=== PATIENT | female | born 1995 | race Hispanic/Latino ===

== ENCOUNTER 2024-09-08 15:31 | Inpatient (IN) | payer MEDICAID, OTHER, SELFPAY ==
[2024-09-08] MEDS ORDERED: Labetalol HCl 100 MG/20 ML VIAL SLOW IVP PRN ×2 (16:14→18:03)
[2024-09-08] MEDS: hydrALAZINE 20 MG/ML VIAL SLOW IVP PRN ×2 (16:23→16:45)
[2024-09-08 16:36] LABS: #Basophils 0.03 10x3/uL (0.0-0.2); #Monocytes 0.73 10x3/uL (0.0-1.1); #Neutrophils 4.98 10x3/uL (1.5-8.4); %Basophils 0.4 % (0.0-2.0); %Eosinophils 1.2 % (0.0-6.0); %Lymphocytes 28.7 % (18.0-47.0); %Monocytes 8.9 % (0.0-10.0); %Neutrophils 60.6 % (40.0-75.0); Hematocrit 38.2 % (34.9-44.5); Hemoglobin 12.8 g/dL (12.0-15.5); Mean Corpuscular HGB CONC 33.5 g/dL (32.0-36.0); Mean Corpuscular Volume 83.6 fL (81.6-98.3); Mean Platelet Volume 10.3 fL (7.4-10.4); Platelet Count 273 10x3/uL (150-450); Red Blood Cell (RBC) Count 4.57 10x6/uL (3.90-5.03); White Blood Cell (WBC) Count 8.2 10x3/uL (3.5-10.5)
[2024-09-08] MEDS ORDERED: Acetaminophen 500 MG TAB PO PRN ×2 (16:37→17:47)
[2024-09-08] MEDS ORDERED: Misoprostol 200 MCG TAB PR PRN (16:37)
[2024-09-08] MEDS ORDERED: Lorazepam 2 MG/ML VIAL SLOW IVP PRN (16:37)
[2024-09-08] MEDS ORDERED: Diphenoxylate HCl/Atropine Tablet PO PRN ×2 (16:37)
[2024-09-08] MEDS ORDERED: Promethazine HCl 25 MG/ML VIAL IM PRN (16:37)
[2024-09-08] MEDS ORDERED: Carboprost 250 MCG/ML AMP IM PRN (16:37)
[2024-09-08] MEDS ORDERED: Ondansetron PF 4 MG/2 ML Vial IVP PRN (16:37)
[2024-09-08] MEDS ORDERED: Calcium Gluc 4.6 MEQ/10 ML (100 MG/ML) SLOW IVP PRN (16:37)
[2024-09-08] MEDS ORDERED: Methylergonovine 0.2 MG/ML VIAL IM PRN (16:37)
[2024-09-08] MEDS ORDERED: Tranexamic Acid 1,000 MG/10 ML VIAL IVP PRN (16:37)
[2024-09-08 16:38] VITALS: BMI 35.6
[2024-09-08] MEDS ORDERED: Oxytocin 30 units/NS 500 ML 500 ML IV SCH (16:45)
[2024-09-08] MEDS: Magnesium Sulfate 20 gm/500 ml 20 GM/500 ML BAG ONE (16:48)
[2024-09-08 16:57] LABS: ALT (SGPT) 25 U/L (8-55); AST (SGOT) 24 U/L (5-34); Alkaline Phosphatase 127 U/L (40-110); Anion Gap 14 mmol/L (10-20); BUN (Urea Nitrogen) 10 mg/dL (7.0-18.7); Bilirubin, Total 0.2 mg/dL (0.2-1.2); Calc. Creatinine Clearance 132 mL/min (70-130); Calcium 9.2 mg/dL (7.8-10.44); Carbon Dioxide 20 mmol/L (22-29); Chloride 106 mmol/L (98-107); Estimated GFR 121; Globulin 3.7 g/dL (2.4-3.5); Glucose 84 mg/dL (70-105); Potassium 4.2 mmol/L (3.5-5.1); Protein, Total 6.7 g/dL (6.0-8.3); Sodium 136 mmol/L (136-145)
[2024-09-08 17:15] LABS: HIV (1/2) Antibody/Antigen Non-Reactive (NonReactive); HIV 1/2 INDEX 0.09 S/CO (<1.00)
[2024-09-08 17:17] LABS: Syphilis Antibody Nonreactive (Nonreactive); Syphilis Antibody Index 0.04 S/CO (<1.00 Non-Reactive)
[2024-09-08] MEDS: Betamet Acet/Betamet Na Ph 30 MG/5 ML VIAL IM SCH (17:30)
[2024-09-08] MEDS: Lactated Ringer's 1,000 ML IV SCH (17:37)
[2024-09-08] MEDS ORDERED: diphenhydrAMINE 50 MG/ML VIAL IVP PRN (17:44)
[2024-09-08] MEDS ORDERED: Metoclopramide HCl 10 MG (2 mL) VIAL IVP PRN (17:45)
[2024-09-08] MEDS ORDERED: hydrALAZINE 20 MG/ML VIAL SLOW IVP PRN (18:03)
[2024-09-08 18:16] LABS: HBsAg Index 0.22 S/CO (0-0.99); Hep B Surf Ag - L&D Non-Reactive S/CO (NonReactive)
[2024-09-08] MEDS: Labetalol HCl 100 MG/20 ML VIAL SLOW IVP PRN (18:34)
[2024-09-08 18:46] LABS: Magnesium 1.6 mg/dL (1.6-2.6)
[2024-09-08] MEDS: Labetalol HCl 200 MG TAB PO SCH (20:17)
[2024-09-08 20:25] LABS: Uric Acid 5.7 mg/dL (2.6-6.0)
[2024-09-08 21:26] LABS: Influenza A by NAA Not Detected (NotDetected); Influenza B by NAA Not Detected (NotDetected); SARS-CoV-2 NAA Rapid Test Not Detected (NotDetected)
[2024-09-09] MEDS: Magnesium Sulfate 20 gm/500 ml 20 GM/500 ML BAG IVPB SCH (00:35)
[2024-09-09 01:29] LABS: Bilirubin Neg (Negative); Blood, Urine 250 (Negative); Clarity Slightly Cloudy (Clear); Glucose, Urine (Dipstick) Normal (Negative); Ketone, Urine 50 mg/dL (Negative); Leukocyte Negative (Negative); Nitrite Negative (Negative); Protein, Urine (Dipstick) 30 mg/dl (Neg-Trace); Urobilinogen Normal mg/dL (Less than 2)
[2024-09-09 01:39] LABS: RBC/HPF Greater than 50 HPF (0-3)
[2024-09-09 01:42] LABS: Bacteria/HPF Rare-Few HPF (None Seen); Squamous Epithelial 0-3 HPF (0-3); WBC/HPF 0-3 HPF (0-3)
[2024-09-09 01:44] LABS: CAUTI Indications for Culture Pregnancy
[2024-09-09 01:45] LABS: Urine Culture Reflex Yes Yes
[2024-09-09 04:31] LABS: #Basophils 0.01 10x3/uL (0.0-0.2); #Monocytes 0.18 10x3/uL (0.0-1.1); #Neutrophils 8.13 10x3/uL (1.5-8.4); %Basophils 0.1 % (0.0-2.0); %Lymphocytes 13.3 % (18.0-47.0); %Monocytes 1.9 % (0.0-10.0); %Neutrophils 83.8 % (40.0-75.0); Hematocrit 37.3 % (34.9-44.5); Hemoglobin 12.3 g/dL (12.0-15.5); Mean Corpuscular Hemoglobin 27.8 pg (27.0-33.0); Mean Corpuscular Volume 84.4 fL (81.6-98.3); Mean Platelet Volume 9.5 fL (7.4-10.4); Platelet Count 265 10x3/uL (150-450); RBC Distribution Width 15.5 % (11.5-14.5); Red Blood Cell (RBC) Count 4.42 10x6/uL (3.90-5.03); White Blood Cell (WBC) Count 9.7 10x3/uL (3.5-10.5)
[2024-09-09 04:45] LABS: ALT (SGPT) 24 U/L (8-55); AST (SGOT) 21 U/L (5-34); Albumin 2.7 g/dL (3.5-5.0); Alkaline Phosphatase 129 U/L (40-110); Anion Gap 18 mmol/L (10-20); BUN (Urea Nitrogen) 8 mg/dL (7.0-18.7); Bilirubin, Total 0.2 mg/dL (0.2-1.2); Calc. Creatinine Clearance 149 mL/min (70-130); Calcium 8.4 mg/dL (7.8-10.44); Carbon Dioxide 15 mmol/L (22-29); Chloride 105 mmol/L (98-107); Estimated GFR 124; Globulin 3.8 g/dL (2.4-3.5); Glucose 127 mg/dL (70-105); Potassium 3.9 mmol/L (3.5-5.1); Protein, Total 6.5 g/dL (6.0-8.3); Sodium 134 mmol/L (136-145)
[2024-09-09] MEDS: Betamet Acet/Betamet Na Ph 30 MG/5 ML VIAL IM SCH (08:51)
[2024-09-09] MEDS: Labetalol HCl 100 MG TAB PO SCH (08:54)
[2024-09-09] MEDS ORDERED: Labetalol HCl 200 MG TAB PO SCH (09:00)
[2024-09-09 16:09] LABS: Uric Acid 6.6 mg/dL (2.6-6.0)
[2024-09-09] MEDS ORDERED: Bicitra 30 ML UDCUP PO PRN (17:12)
[2024-09-09] MEDS ORDERED: Famotidine/PF 20 mg/2ml Vial SLOW IVP PRN (17:12)
[2024-09-09] MEDS: CEFAZOLIN 2 GM in Sodium Chloride 0.9% 100 ML IVPB SCH (17:44)
[2024-09-09 18:35] LABS: Analyzer IN Cardio CS NICU; RapidComm Collect By RN
[2024-09-09 18:37] LABS: Analyzer IN Cardio CS NICU; RapidComm Collect By RN; pH (Cord, venous) 7.275 (7.250-7.350)
[2024-09-09] MEDS ORDERED: Naloxone HCl 0.4 mg/ml Vial IVP PRN (19:20)
[2024-09-09] MEDS ORDERED: Meperidine HCl/PF 25 MG (1 mL) VIAL SLOW IVP PRN (19:20)
[2024-09-09] MEDS ORDERED: fentaNYL 50 mcg/mL 1 mL Vial SLOW IVP PRN (19:20)
[2024-09-09] MEDS ORDERED: Naloxone HCl 0.4 mg/ml Vial IV PRN (19:20)
[2024-09-09] MEDS ORDERED: Ondansetron PF 4 MG/2 ML Vial IVP PRN ×2 (19:20)
[2024-09-09] MEDS ORDERED: Promethazine HCl 25 MG/ML VIAL IM PRN (19:20)
[2024-09-09] MEDS ORDERED: Ketorolac Tromethamine 30 MG (1 mL) VIAL IVP SCH (19:30)
[2024-09-09] MEDS ORDERED: Communication Order-Pharmacy FS SCH (19:30)
[2024-09-09] MEDS ORDERED: diphenhydrAMINE 25 MG CAP PO PRN (23:33)
[2024-09-10 00:05] LABS: Group B Streptococcus by PCR Not Detected (NotDetected)
[2024-09-10] MEDS: Ketorolac Tromethamine 30 MG (1 mL) VIAL IVP PRN (09:00)
[2024-09-10] MEDS: Moisturizing Cream (Eucerin) 113 GM JAR TOP PRN (10:18)
[2024-09-10] MEDS: diphenhydrAMINE 50 MG/ML VIAL IVP PRN (10:19)
[2024-09-10] MEDS: Naloxone HCl 0.4 mg/ml Vial IVP PRN (10:19)
[2024-09-10] MEDS ORDERED: Oxytocin 30 units/NS 500 ML 500 ML IV SCH (20:01)
[2024-09-10] MEDS ORDERED: Misoprostol 200 MCG TAB PR PRN (20:01)
[2024-09-10] MEDS ORDERED: Calcium Gluc 4.6 MEQ/10 ML (100 MG/ML) SLOW IVP PRN (20:01)
[2024-09-10] MEDS ORDERED: hydrALAZINE 20 MG/ML VIAL SLOW IVP PRN (20:01)
[2024-09-10] MEDS ORDERED: Lorazepam 2 MG/ML VIAL SLOW IVP PRN (20:01)
[2024-09-10] MEDS ORDERED: diphenhydrAMINE 25 MG CAP PO PRN (20:01)
[2024-09-10] MEDS ORDERED: Magnesium Sulfate 20 gm/500 ml 20 GM/500 ML BAG IVPB SCH ×2 (20:01)
[2024-09-10] MEDS ORDERED: Lanolin Ointment 7 GM TUBE TOP PRN (20:01)
[2024-09-10] MEDS ORDERED: Ondansetron PF 4 MG/2 ML Vial IVP PRN (20:01)
[2024-09-10] MEDS: Labetalol HCl 100 MG TAB PO SCH (20:58)
[2024-09-10] MEDS: Docusate 100 MG CAP PO SCH (20:58)
[2024-09-10] MEDS: HYDROcodone/Acetaminophen 5/325 mg Tablet PO PRN (20:59)
[2024-09-10] MEDS: Prenatal Vitamin 1 TAB PO SCH (21:00)
[2024-09-10] MEDS: Simethicone Chewable 80 MG TAB PO PRN (23:09)
[2024-09-10] MEDS: Ibuprofen 800 MG TAB PO SCH (23:11)
[2024-09-11] MEDS: Ferrous Sulfate 325 MG TAB PO SCH (01:43)
[2024-09-11 03:48] LABS: Hemoglobin 10.4 g/dL (12.0-15.5); Mean Corpuscular HGB CONC 33.5 g/dL (32.0-36.0); Mean Corpuscular Hemoglobin 28.6 pg (27.0-33.0); Mean Corpuscular Volume 85.2 fL (81.6-98.3); Mean Platelet Volume 9.5 fL (7.4-10.4); Platelet Count 239 10x3/uL (150-450); RBC Distribution Width 16.1 % (11.5-14.5); Red Blood Cell (RBC) Count 3.64 10x6/uL (3.90-5.03); White Blood Cell (WBC) Count 9.8 10x3/uL (3.5-10.5)
[2024-09-11] MEDS: Boostrix 0.5 ML (Tdap) VIAL (>/=7 yrs of age) IM ONE (07:07)
[2024-09-11] MEDS: Oxytocin 10 UNITS/ML VIAL ONE (07:09)
[2024-09-11] MEDS: Ondansetron PF 4 MG/2 ML Vial ONE (07:09)
[2024-09-11] MEDS: PHENYLEPHRINE-NS 100 MCG/ML 10 ML SYRINGE ONE (07:09)
[2024-09-11] MEDS: Dexamethasone 10 MG/ML VIAL ONE (07:09)
[2024-09-11] MEDS: Acetaminophen 500 MG TAB PO SCH (07:09)
[2024-09-11] MEDS: Betamet Acet/Betamet Na Ph 30 MG/5 ML VIAL ONE (07:09)
[2024-09-11] MEDS: Morphine PF 10 MG/10 ML VIAL ONE (07:09)
[2024-09-11] MEDS: Tranexamic Acid 1,000 MG/10 ML VIAL ONE (07:10)
[2024-09-11] MEDS: Phytonadione Neonatal 1 MG/0.5 ML AMP ONE (07:10)
[2024-09-11] MEDS: Erythromycin Base 0.5% Oint 1 GM TUBE ONE (07:10)
[2024-09-11] MEDS: fentaNYL 50 mcg/mL 1 mL Vial ONE ×2 (07:10)
[2024-09-11] MEDS: ePHEDrine Sulfate 50 MG/10 ML VIAL ONE (07:10)
[2024-09-11] MEDS: Labetalol HCl 200 MG TAB PO SCH (08:36)
[2024-09-11] MEDS: Prenatal Vitamin 1 TAB PO SCH (08:36)
[2024-09-11] MEDS: HYDROcodone/Acetaminophen 5/325 mg Tablet PO PRN (09:38)
[2024-09-12] MEDS: Ibuprofen 800 MG TAB PO SCH (07:49)
[2024-09-12] MEDS ORDERED: Labetalol HCl 200 MG TAB PO SCH (09:00)
[2024-09-12] MEDS: Labetalol HCl 200 MG TAB PO SCH ×2 (09:01→20:33)
[2024-09-12] MEDS: hydrALAZINE 20 MG/ML VIAL ONE (09:02)
[2024-09-12 09:22] LABS: #Basophils 0.02 10x3/uL (0.0-0.2); #Eosinophils 0.04 10x3/uL (0.0-0.5); #Monocytes 0.73 10x3/uL (0.0-1.1); %Basophils 0.2 % (0.0-2.0); %Eosinophils 0.4 % (0.0-6.0); %Lymphocytes 23.7 % (18.0-47.0); %Monocytes 7.1 % (0.0-10.0); Hematocrit 34.9 % (34.9-44.5); Hemoglobin 11.6 g/dL (12.0-15.5); Mean Corpuscular HGB CONC 33.2 g/dL (32.0-36.0); Mean Corpuscular Hemoglobin 28.5 pg (27.0-33.0); Mean Corpuscular Volume 85.7 fL (81.6-98.3); Mean Platelet Volume 9.3 fL (7.4-10.4); Platelet Count 260 10x3/uL (150-450); RBC Distribution Width 15.9 % (11.5-14.5); Red Blood Cell (RBC) Count 4.07 10x6/uL (3.90-5.03); White Blood Cell (WBC) Count 10.3 10x3/uL (3.5-10.5)
[2024-09-12 09:41] LABS: ALT (SGPT) 27 U/L (8-55); AST (SGOT) 32 U/L (5-34); Albumin 2.7 g/dL (3.5-5.0); Alkaline Phosphatase 91 U/L (40-110); Anion Gap 17 mmol/L (10-20); BUN (Urea Nitrogen) 14 mg/dL (7.0-18.7); Bilirubin, Total 0.2 mg/dL (0.2-1.2); Calc. Creatinine Clearance 140 mL/min (70-130); Calcium 8.6 mg/dL (7.8-10.44); Carbon Dioxide 20 mmol/L (22-29); Chloride 106 mmol/L (98-107); Estimated GFR 122; Globulin 3.6 g/dL (2.4-3.5); Glucose 103 mg/dL (70-105); Potassium 4.1 mmol/L (3.5-5.1); Protein, Total 6.3 g/dL (6.0-8.3); Sodium 139 mmol/L (136-145)
[2024-09-12] MEDS ORDERED: hydrALAZINE 20 MG/ML VIAL SLOW IVP PRN (20:09)
[2024-09-12] MEDS: hydrALAZINE 20 MG/ML VIAL SLOW IVP SCH (20:18)
[2024-09-12] MEDS: NIFEdipine XL 30 MG ER.TAB PO SCH (20:32)
[2024-09-13 03:55] LABS: #Basophils 0.01 10x3/uL (0.0-0.2); #Monocytes 0.68 10x3/uL (0.0-1.1); #Neutrophils 7.54 10x3/uL (1.5-8.4); %Basophils 0.1 % (0.0-2.0); %Eosinophils 0.9 % (0.0-6.0); %Lymphocytes 20.7 % (18.0-47.0); %Monocytes 6.4 % (0.0-10.0); %Neutrophils 71.5 % (40.0-75.0); Hematocrit 35.7 % (34.9-44.5); Hemoglobin 11.4 g/dL (12.0-15.5); Mean Corpuscular HGB CONC 31.9 g/dL (32.0-36.0); Mean Corpuscular Hemoglobin 27.7 pg (27.0-33.0); Mean Corpuscular Volume 86.9 fL (81.6-98.3); Mean Platelet Volume 9.4 fL (7.4-10.4); Platelet Count 271 10x3/uL (150-450); RBC Distribution Width 15.8 % (11.5-14.5); Red Blood Cell (RBC) Count 4.11 10x6/uL (3.90-5.03); White Blood Cell (WBC) Count 10.6 10x3/uL (3.5-10.5)
[2024-09-13 04:08] LABS: ALT (SGPT) 28 U/L (8-55); AST (SGOT) 28 U/L (5-34); Albumin 2.7 g/dL (3.5-5.0); Alkaline Phosphatase 96 U/L (40-110); Anion Gap 15 mmol/L (10-20); BUN (Urea Nitrogen) 10 mg/dL (7.0-18.7); Bilirubin, Total 0.3 mg/dL (0.2-1.2); Calc. Creatinine Clearance 165 mL/min (70-130); Calcium 8.8 mg/dL (7.8-10.44); Carbon Dioxide 22 mmol/L (22-29); Chloride 107 mmol/L (98-107); Estimated GFR 127; Globulin 3.3 g/dL (2.4-3.5); Glucose 82 mg/dL (70-105); Potassium 3.9 mmol/L (3.5-5.1); Sodium 140 mmol/L (136-145)
[2024-09-13] MEDS: NIFEdipine XL 30 MG ER.TAB PO SCH (20:57)
[2024-09-13] MEDS: hydrALAZINE 20 MG/ML VIAL SLOW IVP SCH (21:57)
[2024-09-14 04:06] LABS: #Basophils 0.04 10x3/uL (0.0-0.2); #Eosinophils 0.17 10x3/uL (0.0-0.5); #Monocytes 0.77 10x3/uL (0.0-1.1); #Neutrophils 5.32 10x3/uL (1.5-8.4); %Basophils 0.5 % (0.0-2.0); %Eosinophils 1.9 % (0.0-6.0); %Lymphocytes 28.4 % (18.0-47.0); %Monocytes 8.7 % (0.0-10.0); %Neutrophils 60.3 % (40.0-75.0); Hematocrit 35.3 % (34.9-44.5); Hemoglobin 11.8 g/dL (12.0-15.5); Mean Corpuscular HGB CONC 33.4 g/dL (32.0-36.0); Mean Corpuscular Hemoglobin 28.8 pg (27.0-33.0); Mean Corpuscular Volume 86.1 fL (81.6-98.3); Mean Platelet Volume 9.3 fL (7.4-10.4); Platelet Count 312 10x3/uL (150-450); RBC Distribution Width 15.7 % (11.5-14.5); White Blood Cell (WBC) Count 8.8 10x3/uL (3.5-10.5)
[2024-09-14 04:25] LABS: ALT (SGPT) 25 U/L (8-55); AST (SGOT) 21 U/L (5-34); Albumin 2.9 g/dL (3.5-5.0); Alkaline Phosphatase 104 U/L (40-110); Anion Gap 16 mmol/L (10-20); BUN (Urea Nitrogen) 12 mg/dL (7.0-18.7); Bilirubin, Total 0.3 mg/dL (0.2-1.2); Calc. Creatinine Clearance 151 mL/min (70-130); Calcium 8.7 mg/dL (7.8-10.44); Carbon Dioxide 21 mmol/L (22-29); Chloride 107 mmol/L (98-107); Estimated GFR 125; Globulin 3.1 g/dL (2.4-3.5); Glucose 82 mg/dL (70-105); Potassium 4.2 mmol/L (3.5-5.1); Sodium 140 mmol/L (136-145)
[2024-09-14] MEDS: NIFEdipine XL 30 MG ER.TAB PO SCH ×2 (11:27→22:56)
[2024-09-14] MEDS ORDERED: guaiFENesin ER 600 MG TAB PO PRN (19:56)
[2024-09-14] MEDS: Loratadine 10 MG TAB PO SCH (22:53)
[2024-09-15] MEDS: Loratadine 10 MG TAB PO SCH (08:33)
[2024-09-15] MEDS ORDERED: NIFEdipine XL 30 MG ER.TAB PO SCH (09:00)
[2024-09-15 10:32] VITALS: BMI 35.6
[2024-09-15 11:21] VITALS: BP 125/86; TEMP 97.6
== END 2024-09-15 16:00 | disposition home or self-care (01) | DRG 788 ==
LOC: CSHLD/OP 15:31 → CSHLD 18:12 → CSHPP 09-10 19:37
PROVIDERS: ADMIT Family Medicine; ATTEND Family Medicine
PROC: 10D00Z1 Extraction of Products of Conception, Low, Open Approach (ICD-10-PCS; principal; 2024-09-09)
DX: O14.14 Severe pre-eclampsia complicating childbirth (principal); Z3A.33 33 weeks gestation of pregnancy; Z37.0 Single live birth; D64.9 Anemia, unspecified; O99.02 Anemia complicating childbirth; O32.1XX0 Maternal care for breech presentation, not applicable or unspecified; O34.13 Maternal care for benign tumor of corpus uteri, third trimester; D25.9 Leiomyoma of uterus, unspecified
CPT/HCPCS: 36415; 51702; 71045; 76816; 76819; 80053; 81001; 82570; 82805; 83735; 83880; 84156; 84550; 85025; 85027; 86780; 86850; 86900; 86901; 87086; 87340; 87389; 87653; 88307; 99285; J0360; J0702; J1100; J1200; J1885; J2274; J2310; J2405; J2590; J3010; J3475; J7120